=== PATIENT | female | born 1965 | race Caucasian/White ===

== ENCOUNTER 2018-02-03 11:26 | Emergency (ER) | payer OTHER ==
[~2018-02-03] VITALS: Ht 162.6 cm; Wt 99.8 kg
[~2018-02-03 11:26] MED LIST: AMOXICILLIN875 MG PO; BENADRYL ALLERG25 MG PO; CARAFATE 1 GM TA1 G1 PO; FIORICET 50-321 EACH PO; LISINOPRIL10 MG PO; MEDROLDOSEPACK PO; NORCO 10-325 T1 EACH PO; PHENERGAN 25 MG25 M1 PO; PREVACID 24HR15 MG PO; VISTARIL 25 MG25 M1 PO; ZOFRAN4 MG PO
[2018-02-03 12:26] LABS: ABSOLUTE BASOPHILS 0.1 thou/uL (0.0-0.2); ABSOLUTE EOSINOPHILS 0.2 thou/uL (0.0-0.7); ABSOLUTE LYMPHOCYTES 1.8 thou/uL (0.8-5.3); ABSOLUTE MONOCYTES 0.4 thou/uL (0.0-1.2); ABSOLUTE NEUTROPHILS 3.8 thou/uL (1.6-8.1); BASOPHILS 0.9 %; EOSINOPHILS 2.5 %; HEMATOCRIT 37.9 % (37.0-47.0); HEMOGLOBIN 12.6 gm/dL (12.0-15.0); LYMPHOCYTES 29.1 %; MCH 29.2 pg (26.0-34.0); MCHC 33.4 g/dL (28.0-37.0); MCV 87.5 fL (80.0-100.0); MONOCYTES 5.9 %; MPV 7.2 fl. (7.2-11.1); NUCLEATED RBCS 0 /100WBC; PLATELET COUNT* 180 thou/uL (150-400); POLYS 61.6 %; RBC 4.33 mil/uL (4.20-5.00); WBC 6.1 thou/uL (4.0-11.0)
[2018-02-03 12:51] LABS: ANION GAP 7 mmol/L (7-16); BUN 14 mg/dL (7-18); CALCIUM 8.4 mg/dL (8.5-10.1); CHLORIDE 106 mmol/L (98-107); CO2 28 mmol/L (21-32); CREATININE 0.8 mg/dL (0.6-1.3); GLUCOSE 99 mg/dL (70-99); POTASSIUM 3.6 mmol/L (3.5-5.1); SODIUM 141 mmol/L (136-145)
[2018-02-03 12:58] LABS: ALBUMIN 3.4 g/dL (3.4-5.0); ALKALINE PHOSPHATASE 76 U/L (46-116); SGOT 16 U/L (15-37); SGPT 17 U/L (30-65); TOTAL BILIRUBIN 0.2 mg/dL (<0.1-1.0); TOTAL PROTEIN 6.7 g/dL (6.4-8.2); TROPONIN-I LEVEL <0.06 ng/mL (<0.06)
[2018-02-03] MEDS ORDERED: ROBAXIN 750 MG750 M1 PO (13:37)
[2018-02-03 14:16] VITALS: BP 153/81
--- NOTE | 2018-02-03 17:05 | EKG ---
[place] [address] ELECTROCARDIOGRAM REPORT Name: RASTA JARVIS I Room: [facility]#: [id number] Admission: 02/03/18 Attend Phys: Discharge: 02/03/18 Date of : 61 Report #: [id number] THIS REPORT FOR: //name// [facility] ED Test Date: 2018-02-03 Test Time: 11:37:26 Pat Name: RASTA JARVIS Department: Room: Gender: F Pumper Gauger Apprentice: Vanessa SHI : 1965 Requested By: Jackie Cutler Order Number: [id number] MD: Ramon Knutson Measurements Intervals [place] Rate: 77 P: 67 MN: 136 QRS: 35 QRSD: 92 T: 23 QT: 399 QTc: 452 Interpretive Statements Sinus rhythm Compared to ECG 11/24/2012 16:55:22 No significant changes Electronically Signed On 02-03-2018 17:05:40 CDT by Ramon Knutson [email or web address] <ELECTRONICALLY SIGNED> By: Ramon Knutson MD, [facility] 02/03/18 1705 1137 113 Ramon Knutson MD, FACC /EPI
== END 2018-02-03 14:17 | disposition home or self-care (01) ==
LOC: M.ERS 11:26
PROVIDERS: Nurse Practitioner Family
DX: M54.2 Cervicalgia (principal); M25.511 Pain in right shoulder; G43.909 Migraine, unspecified, not intractable, without status migrainosus; Z87.01 Personal history of pneumonia (recurrent); Z90.49 Acquired absence of other specified parts of digestive tract; Z98.890 Other specified postprocedural states; Z88.5 Allergy status to narcotic agent

== ENCOUNTER 2018-07-24 22:32 | Emergency (ER) | payer OTHER ==
[~2018-07-24] VITALS: Ht 162.6 cm; Wt 102.1 kg
[~2018-07-24 22:32] MED LIST changes: +ROBAXIN 750 MG750 M1 PO
[2018-07-24 23:06] LABS: ABSOLUTE BASOPHILS 0.1 thou/uL (0.0-0.2); ABSOLUTE EOSINOPHILS 0.1 thou/uL (0.0-0.7); ABSOLUTE LYMPHOCYTES 2.6 thou/uL (0.8-5.3); ABSOLUTE MONOCYTES 0.4 thou/uL (0.0-1.2); BASOPHILS 1.1 %; EOSINOPHILS 1.9 %; HEMATOCRIT 37.6 % (37.0-47.0); HEMOGLOBIN 12.6 gm/dL (12.0-15.0); MCHC 33.6 g/dL (28.0-37.0); MCV 86.3 fL (80.0-100.0); MONOCYTES 7.1 %; MPV 7.7 fl. (7.2-11.1); NUCLEATED RBCS 0 /100WBC; PLATELET COUNT* 192 thou/uL (150-400); POLYS 47.9 %; RBC 4.35 mil/uL (4.20-5.00); RDW-CV 13.9 % (10.5-14.5); WBC 6.2 thou/uL (4.0-11.0)
[2018-07-24 23:24] LABS: ALBUMIN 3.4 g/dL (3.4-5.0); ALKALINE PHOSPHATASE 82 U/L (46-116); ANION GAP 11 mmol/L (7-16); BUN 17 mg/dL (7-18); CALCIUM 8.9 mg/dL (8.5-10.1); CHLORIDE 103 mmol/L (98-107); CO2 27 mmol/L (21-32); CREATININE 1.1 mg/dL (0.6-1.3); GLUCOSE 98 mg/dL (70-99); LIPASE 139 U/L (73-393); POTASSIUM 3.7 mmol/L (3.5-5.1); SGOT 17 U/L (15-37); SGPT 19 U/L (30-65); SODIUM 141 mmol/L (136-145); TOTAL BILIRUBIN 0.2 mg/dL (<0.1-1.0); TOTAL PROTEIN 7.1 g/dL (6.4-8.2); TROPONIN-I LEVEL <0.06 ng/mL (<0.06)
[2018-07-25] MEDS ORDERED: FLEXERIL PO (01:27)
[2018-07-25] MEDS ORDERED: ZOFRAN ODT4 MG DISSOLVE (01:33)
[2018-07-25 01:46] VITALS: BP 117/50
--- NOTE | 2018-07-25 13:11 | EKG ---
[place] [address] ELECTROCARDIOGRAM REPORT Name: RASTA JARVIS I Room: [facility]#: [id number] Admission: 07/24/18 Attend Phys: Discharge: 07/25/18 Date of : 61 Report #: [id number] THIS REPORT FOR: //name// [facility] ED Test Date: 2018-07-24 Test Time: 22:37:10 Pat Name: RASTA JARVIS Department: Room: Gender: F Supervisor Mapping: CHASE : 1965 Requested By: Shakir Grey Order Number: [id number] MD: Fredis Dan Measurements Intervals [place] Rate: 94 P: 60 MA: 133 QRS: -11 QRSD: 95 T: 4 QT: 366 QTc: 458 Interpretive Statements Sinus rhythm Compared to ECG 02/03/2018 11:37:26 No significant changes Electronically Signed On 07-25-2018 13:11:16 CDT by Fredis Dan [email or web address] <ELECTRONICALLY SIGNED> By: Fredis Dan MD, [facility] 07/25/18 1311 2236 36 Fredis Dan MD, FACC /EPI
--- NOTE | 2018-07-25 13:12 | EKG ---
[place] [address] ELECTROCARDIOGRAM REPORT Name: RASTA JARVIS I Room: [facility]#: [id number] Admission: 07/24/18 Attend Phys: Discharge: 07/25/18 Date of : 61 Report #: [id number] THIS REPORT FOR: //name// [facility] ED Test Date: 2018-07-25 Test Time: 01:21:34 Pat Name: RASTA JARVIS Department: Room: Gender: F Gym Manager: EMY : 1965 Requested By: Shakir Grey Order Number: [id number] MD: Fredis Dan Measurements Intervals [place] Rate: 78 P: 51 RI: 132 QRS: -14 QRSD: 94 T: -4 QT: 430 QTc: 490 Interpretive Statements Sinus rhythm Borderline T abnormalities, inferior leads Borderline prolonged QT interval Electronically Signed On 07-25-2018 13:12:00 CDT by Fredis Dan [email or web address] <ELECTRONICALLY SIGNED> By: Fredis Dan MD, [facility] 07/25/18 1312 0121 0121 Fredis Dan MD, FACC /EPI
== END 2018-07-25 01:49 | disposition home or self-care (01) ==
LOC: M.ERS 22:32
PROVIDERS: Emergency Medicine Emergency Medical Services
DX: R07.89 Other chest pain (principal); G43.909 Migraine, unspecified, not intractable, without status migrainosus; Z88.5 Allergy status to narcotic agent; Z88.6 Allergy status to analgesic agent; Z90.49 Acquired absence of other specified parts of digestive tract; Z98.890 Other specified postprocedural states; Z87.01 Personal history of pneumonia (recurrent)

== ENCOUNTER 2019-01-30 13:55 | Emergency (ER) | payer OTHER ==
[~2019-01-30] VITALS: Ht 162.6 cm; Wt 95.3 kg
[~2019-01-30 13:55] MED LIST changes: +FLEXERIL PO; +ZOFRAN ODT4 MG DISSOLVE
[2019-01-30 14:29] LABS: ABSOLUTE BASOPHILS 0.1 thou/uL (0.0-0.2); ABSOLUTE LYMPHOCYTES 1.4 thou/uL (0.8-5.3); ABSOLUTE MONOCYTES 0.3 thou/uL (0.0-1.2); EOSINOPHILS 0.2 %; HEMATOCRIT 41.3 % (37.0-47.0); HEMOGLOBIN 13.9 gm/dL (12.0-15.0); LYMPHOCYTES 17.4 %; MCH 29.4 pg (26.0-34.0); MCHC 33.6 g/dL (28.0-37.0); MCV 87.4 fL (80.0-100.0); MONOCYTES 4.4 %; MPV 7.7 fl. (7.2-11.1); NUCLEATED RBCS 0 /100WBC; PLATELET COUNT* 203 thou/uL (150-400); RBC 4.72 mil/uL (4.20-5.00); RDW-CV 13.9 % (10.5-14.5); WBC 7.8 thou/uL (4.0-11.0)
[2019-01-30 14:38] LABS: CALCIUM 9.4 mg/dL (8.5-10.1); CREATININE 0.9 mg/dL (0.6-1.3)
[2019-01-30 14:42] LABS: ALBUMIN 3.8 g/dL (3.4-5.0); TOTAL BILIRUBIN 0.5 mg/dL (<0.1-1.0); TOTAL PROTEIN 7.7 g/dL (6.4-8.2)
[2019-01-30] MEDS ORDERED: ONDANSETRON HCL4 M2 PO (15:47)
[2019-01-30 16:30] VITALS: BP 140/80
== END 2019-01-30 16:30 | disposition home or self-care (01) ==
LOC: M.ERS 13:55
PROVIDERS: Nurse Practitioner Family
DX: R11.2 Nausea with vomiting, unspecified (principal); G43.909 Migraine, unspecified, not intractable, without status migrainosus; Z98.890 Other specified postprocedural states; Z90.49 Acquired absence of other specified parts of digestive tract; Z88.6 Allergy status to analgesic agent

== ENCOUNTER 2019-03-07 05:22 | Emergency (ER) | payer OTHER ==
[~2019-03-07] VITALS: Ht 162.6 cm; Wt 102.1 kg
[~2019-03-07 05:22] MED LIST changes: +ONDANSETRON HCL4 M2 PO
[2019-03-07 06:22] LABS: ABSOLUTE BASOPHILS 0.1 thou/uL (0.0-0.2); ABSOLUTE LYMPHOCYTES 1.1 thou/uL (0.8-5.3); ABSOLUTE MONOCYTES 0.5 thou/uL (0.0-1.2); ABSOLUTE NEUTROPHILS 8.9 thou/uL (1.6-8.1); BASOPHILS 0.6 %; EOSINOPHILS 0.2 %; HEMATOCRIT 40.9 % (37.0-47.0); LYMPHOCYTES 10.2 %; MCH 29.4 pg (26.0-34.0); MCHC 34.2 g/dL (28.0-37.0); MONOCYTES 4.4 %; MPV 8.1 fl. (7.2-11.1); NUCLEATED RBCS 0 /100WBC; PLATELET COUNT* 201 thou/uL (150-400); POLYS 84.6 %; RBC 4.76 mil/uL (4.20-5.00); RDW-CV 13.8 % (10.5-14.5); WBC 10.5 thou/uL (4.0-11.0)
[2019-03-07 06:23] LABS: URINE BILIRUBIN NEGATIVE (Negative); URINE BLOOD TRACE (Negative); URINE CLARITY CLEAR; URINE COLOR YELLOW; URINE GLUCOSE-RANDOM NEGATIVE (Negative); URINE KETONES NEGATIVE (Negative); URINE LEUKOCYTES-REFLEX NEGATIVE (Negative); URINE NITRITE-REFLEX NEGATIVE (Negative); URINE PROTEIN NEGATIVE (Negative); URINE SPECIFIC GRAVITY 1.025 (1.005-1.030); URINE UROBILINOGEN 0.2 E.U./dl (0.2-1.0)
[2019-03-07 06:24] LABS: CALCIUM 9.1 mg/dL (8.5-10.1); CREATININE 0.9 mg/dL (0.6-1.3); POTASSIUM 3.9 mmol/L (3.5-5.1)
[2019-03-07 06:28] LABS: ALBUMIN 3.7 g/dL (3.4-5.0); TOTAL BILIRUBIN 0.4 mg/dL (<0.1-1.0); TOTAL PROTEIN 7.7 g/dL (6.4-8.2)
[2019-03-07 06:31] LABS: AMP/METHAMP Negative (Negative); BARBITURATES Negative (Negative); BENZODIAZEPINES Negative (Negative); COCAINE Negative (Negative); METHADONE Negative (Negative); OPIATES Negative (Negative); PCP Negative (Negative); THC Negative (Negative)
[2019-03-07] MEDS ORDERED: ZOFRAN ODT4 MG PO (07:29)
[2019-03-07] MEDS ORDERED: TRAMADOL 50 MG50 MG PO (07:29)
[2019-03-07 07:38] VITALS: BP 154/84
== END 2019-03-07 07:39 | disposition home or self-care (01) ==
LOC: M.ERS 05:22
PROVIDERS: Personal Emergency Response Attendant
DX: R10.84 Generalized abdominal pain (principal); R10.31 Right lower quadrant pain; G43.909 Migraine, unspecified, not intractable, without status migrainosus; Z87.01 Personal history of pneumonia (recurrent); Z90.49 Acquired absence of other specified parts of digestive tract; Z98.890 Other specified postprocedural states; Z88.5 Allergy status to narcotic agent; Z79.899 Other long term (current) drug therapy

== ENCOUNTER 2019-03-07 13:00 | Inpatient (IN) | payer OTHER ==
[~2019-03-07] VITALS: Ht 162.6 cm; Wt 102.1 kg
[~2019-03-07 13:00] MED LIST changes: +TRAMADOL 50 MG50 MG PO; +ZOFRAN ODT4 MG PO
[2019-03-07 13:08] VITALS: BP 146/80
[2019-03-07 14:19] LABS: ABSOLUTE BASOPHILS 0.1 thou/uL (0.0-0.2); ABSOLUTE LYMPHOCYTES 1.2 thou/uL (0.8-5.3); ABSOLUTE MONOCYTES 0.7 thou/uL (0.0-1.2); ABSOLUTE NEUTROPHILS 8.3 thou/uL (1.6-8.1); BASOPHILS 0.6 %; HEMATOCRIT 37.1 % (37.0-47.0); HEMOGLOBIN 12.6 gm/dL (12.0-15.0); LYMPHOCYTES 11.8 %; MCH 29.5 pg (26.0-34.0); MCHC 34.1 g/dL (28.0-37.0); MCV 86.5 fL (80.0-100.0); MONOCYTES 6.7 %; NUCLEATED RBCS 0 /100WBC; PLATELET COUNT* 177 thou/uL (150-400); POLYS 80.9 %; RBC 4.29 mil/uL (4.20-5.00); RDW-CV 13.8 % (10.5-14.5); WBC 10.3 thou/uL (4.0-11.0)
--- NOTE | 2019-03-07 18:16 | NUR ---
PT ARRIVED TO FLOOR FROM ER ABOUT 1630. PT STABLE. PAIN 5/10, DENIED PAIN MEDS AT THE TIME. ZOFRAN GIVEN FOR NAUSEA. IV PATENT, INFUSING. UP STAND BY. IN ROOM. SURGERY CONSULTED. TOLERATING CLEARS. WILL BE NPO AT MIDNIGHT. CALL LIGHT WITHIN REACH. WILL CONTINUE TO MONITOR.
[2019-03-07 19:35] VITALS: BP 129/74
[2019-03-08 04:40] LABS: ABSOLUTE LYMPHOCYTES 1.2 thou/uL (0.8-5.3); ABSOLUTE MONOCYTES 0.6 thou/uL (0.0-1.2); ABSOLUTE NEUTROPHILS 7.7 thou/uL (1.6-8.1); BASOPHILS 0.5 %; EOSINOPHILS 0.1 %; HEMATOCRIT 34.7 % (37.0-47.0); HEMOGLOBIN 11.9 gm/dL (12.0-15.0); LYMPHOCYTES 12.7 %; MCH 29.7 pg (26.0-34.0); MCHC 34.3 g/dL (28.0-37.0); MCV 86.7 fL (80.0-100.0); MPV 7.5 fl. (7.2-11.1); NUCLEATED RBCS 0 /100WBC; PLATELET COUNT* 164 thou/uL (150-400); POLYS 80.7 %; RDW-CV 13.9 % (10.5-14.5); WBC 9.5 thou/uL (4.0-11.0)
--- NOTE | 2019-03-08 04:55 | NUR ---
PATIENT HAS REMAINED ALERT AND ORIENTED X 4 THROUGHOUT THE SHIFT AND RESTING QUIETLY AT HOURLY ROUNDS. MEDICATED X 1 FOR PAIN AND NAUSEA OF THIS WRITING TO GOOD EFFECT. ORDERS FOR BOTH NPO AT MIDNIGHT AND A PELVIC + TRANSVAGINAL US WHICH REQUIRES WATER INTAKE PRIOR TO PROCEDURE FOR THIS AM. WILL SEEK CLARIFICATION REGARDING CONFLICTING ORDERS. UP SBA TO BR. NO STOOLS OVERNIGHT. VITAL SIGNS STABLE. CONTINUE TO MONITOR.
[2019-03-08 05:12] LABS: CALCIUM 8.4 mg/dL (8.5-10.1); CREATININE 0.8 mg/dL (0.6-1.3); POTASSIUM 3.4 mmol/L (3.5-5.1); TOTAL BILIRUBIN 0.5 mg/dL (<0.1-1.0); TOTAL PROTEIN 6.5 g/dL (6.4-8.2)
[2019-03-08 10:00] VITALS: BP 111/71
--- NOTE | 2019-03-08 18:29 | NUR ---
PATIENT ALERT AND ORIENTED THRU SHIFT. SEE MAR FOR PAIN CONTROL. IV FLUIDS INFUSING S/O DIFF. US DONE THIS AM. HRLY ROUNDS DONE. PRESENT IN THRU SHIFT. CURRENTLY RESTING IN BED, CALL LIGHT IN REACH. TV ON. DENIES OTHER NEEDS AT THIS TIME. ~TJRN
[2019-03-08 20:00] VITALS: BP 119/60
--- NOTE | 2019-03-09 04:17 | NUR ---
PATIENT HAS REMAINED ALERT AND ORIENTED X 4 THROUGHOUT THE SHIFT. SEVERE PAIN ABDOMEN RLQ AT SHIFT START WITH NAUSEA. ORDERED ORAL MEDS CAUSED NAUSEA WELL EARLIER IN THE DAY SO PATIENT REQUESTED THE IV MED THAT HAD PREVIOUSLY BEEN GIVEN. THIS MED FOUND TO HAVE BEEN DISCONTINUED. PHYSICIAN CONTACTED AND UPDATED ON STATUS/REQUEST. ABLE TO PROVIDE PATIENT IV PAIN AND NAUSEA MEDS REQUESTED. MIDNIGHT WITH REPORTED INCREASE IN PAIN AND LOCATION CHANGE FROM LLQ TO HIGHER AND TO SIDE. PAIN AND NAUSEA MEDS REPEATED TO GOOD EFFECT. CURRENTLY SITTING AT BEDSIDE WITH SPRITE. VITAL SIGNS STABLE. CONTINUE TO MONITOR.
[2019-03-09 04:21] LABS: CALCIUM 8.5 mg/dL (8.5-10.1); CREATININE 0.7 mg/dL (0.6-1.3); MAGNESIUM 1.8 mg/dL (1.8-2.4); POTASSIUM 3.4 mmol/L (3.5-5.1)
[2019-03-09 07:45] VITALS: BP 118/66
[2019-03-09 16:19] VITALS: BP 105/56
--- NOTE | 2019-03-09 18:23 | NUR ---
PATIENT ALERT AND ORIENTED THRU SHIFT. SEE MAR. IV SITE NOTED WNL, FLUIDS INFUSING W/O DIFF. POC REVIEWED W/ PATIENT/ FOR PROCEDURE TOMORROW AM. PATIENT INDEP IN RM W/ STEADY GAIT. CONSENT REVIEWED AND SIGNED. PATIENT CURRENTLY RESTING IN BED, FAMILY MEMBERS IN RM. CALL LIGHT IN REACH. RM DARKENED, TV ON. DENIES NEEDS AT THIS TIME. INSTRUCTED OF SURGERY PLAN FOR PROCEDURE SCHEDULED AT 0730. HRLY ROUNDS DONE. ~PETERRN
[2019-03-09 19:54] VITALS: BP 102/71
[2019-03-10] VITALS: BP 109/70
[2019-03-10 02:01] VITALS: BP 109/70
[2019-03-10 04:15] LABS: ABSOLUTE LYMPHOCYTES 1.1 thou/uL (0.8-5.3); ABSOLUTE MONOCYTES 0.8 thou/uL (0.0-1.2); ABSOLUTE NEUTROPHILS 9.6 thou/uL (1.6-8.1); BASOPHILS 0.4 %; HEMATOCRIT 32.8 % (37.0-47.0); LYMPHOCYTES 9.5 %; MCH 29.2 pg (26.0-34.0); MCHC 33.5 g/dL (28.0-37.0); MCV 87.3 fL (80.0-100.0); MONOCYTES 6.8 %; MPV 8.1 fl. (7.2-11.1); NUCLEATED RBCS 0 /100WBC; PLATELET COUNT* 149 thou/uL (150-400); POLYS 83.3 %; RBC 3.76 mil/uL (4.20-5.00); RDW-CV 13.6 % (10.5-14.5); WBC 11.5 thou/uL (4.0-11.0)
[2019-03-10 04:29] LABS: CALCIUM 8.7 mg/dL (8.5-10.1); CREATININE 0.9 mg/dL (0.6-1.3); POTASSIUM 3.2 mmol/L (3.5-5.1)
--- NOTE | 2019-03-10 07:28 | NUR ---
ASSUMED CARE OF PT 03/09/19 AT APPROX 1930, PT A&OX4, PT ON ROOM AIR, PT NPO SINCE MIDNIGHT FOR AM SURGERY, PAIN MED REQUESTED AND GIVEN ORDERED, PT POTASSIUM 3.2 IN AM - PT REFUSED ORDER FOR IV POTASSIUM CHLORIDE, REQUESTED PO BE GIVEN AFTER SURGERY, PHYSICIAN NOTIFIED, REPORT GIVEN AND CARE OF PATIENT TRANSFERED TO DAY SHIFT NURSE APPROX 0715.
--- NOTE | 2019-03-10 10:22 | OP ---
[address] [address] OPERATIVE REPORT Name: RASTA JARVIS I Room: [address] IN [facility]#: [id number] Admission: 03/09/19 Attend Phys: Pablito Venegas MD Discharge: Date of : 61 Report #: [id number] THIS REPORT FOR: //name// CC: Elizabeth Venegas DATE OF SERVICE: 03/10/2019 PREPROCEDURE DIAGNOSIS: Acute appendicitis. POSTPROCEDURE DIAGNOSES: Perforated appendicitis with purulent peritonitis, extensive intraabdominal adhesions and a recurrent umbilical hernia with findings of failed mesh. SURGEON: Elizabeth Waller DO. COSURGEON: Hamzah Rapp, PGY3. FIELD TRAFFIC INVESTIGATOR: None. PROCEDURE PERFORMED: Diagnostic laparoscopy, extensive lysis of adhesions for greater than 45 minutes and laparoscopic appendectomy. ANESTHESIA: General endotracheal and local. ESTIMATED BLOOD LOSS: 5. DRAINS: 15-Jordanian ISAI drain in the right lower quadrant. SPECIMENS: Appendix. COMPLICATIONS: None. CONDITION: Stable. DISPOSITION: PACU to the floor. HISTORY OF PRESENT ILLNESS: The patient is a very pleasant 53-year-old female who presented to the ER with a complaint of acute onset right lower quadrant abdominal pain. She had some mild associated nausea. Workup in the ED was essentially benign. She had a complete set of blood work, which was all within normal limits. UA showed only trace amount of blood. CT scan of the abdomen and pelvis with IV contrast was completely negative. She was admitted to the floor for observation. Her blood work on hospital day 1, continued to be normal, but she continued to complain of right lower quadrant abdominal pain. [address] [address] OPERATIVE REPORT Name: RASTA JARVIS Mani Room: [address] IN [facility].#: [id number] Admission: 03/09/19 Attend Phys: Pablito Venegas MD Discharge: Date of : 61 Report #: [id number] Pelvic ultrasound was completed with findings of a Bartholin gland cyst and some small physiologic ovarian cysts. Since her pain continued, we decided to proceed with a repeat CT scan of the abdomen and pelvis with PO and IV contrast, which then was positive for acute appendicitis. She was then consented for laparoscopic appendectomy, possible open. Risks discussed included bleeding, infection, pain, scar formation, injury to bowel, liver or other intraabdominal organs, hernia at the incision sites, need for an open procedure and risks of general anesthesia. The patient understood these risks and elected to proceed. PROCEDURE NOTE: The patient was brought to the operating room. She was laid supine on the operating room table. SCDs were placed on bilateral lower extremity. Zosyn was already being given in the perioperative period. General endotracheal anesthesia was induced by Anesthesia without difficulty. Abdomen was prepped and draped in standard sterile fashion. Timeout was performed to verify patient and procedure. A 10 mL of 0.5% Marcaine were injected in the supraumbilical area. Incision was made with 11 blade. Cautery was used for hemostasis. S retractors were used to visualize the fascia. Fascia was grasped and elevated between 2 Kochers. Fascia was incised using cautery. Peritoneum was bluntly entered using a Abi clamp. Finger was introduced into the abdomen to assure that there were no cem-incisional adhesions. Unfortunately, multiple adhesions were palpated at the umbilicus. I did have a clear zone to introduce the Cerda. A 2-0 Vicryl stitches were placed on the fascia. Laci trocar was introduced and secured with 0 Vicryl stitches. Abdomen was insufflated. Camera was introduced and a brief anterior abdominal exploration was undertaken with findings of dense adhesions at the umbilicus, which appeared to stretch into the pelvis. We were able to visualize the left lower quadrant; however, there was some thin purulent fluid in the pelvis. Two 5 mm trocars were then introduced, one in the left lower quadrant, one in the suprapubic area, both under direct visualization. We then began an extensive lysis of adhesions at the umbilicus. There was omentum and a loop of the transverse colon, which were densely adherent to what appeared to be a failed previous umbilical hernia repair with mesh. Mesh itself was not identified, but there were several areas where there appeared to be fibers of an old mesh at the site of the umbilicus. The hernia was obviously recurrent. An additional 5 mm trocar had to be introduced in the left mid quadrant to complete the lysis of adhesions. Care was taken during our dissection to avoid injury to the bowel. Once the entirety of the umbilicus was clear, we were then able to visualize the right lower quadrant. Cecum was adhered to the anterior abdominal wall. It was gently taken down using blunt dissection. Appendix was then easily identified. It was obviously acutely inflamed and there was a suggestion of perforation. The appendix was traced back to the base, which was healthy and pink. Base of the appendix was elevated and a [place] dissector was used to create a window in the mesentery at the base of the appendix. A 45 mm purple load stapler was introduced and the base of the appendix was clamped and stapled without difficulty. An additional 45 mm purple load stapler was used to take the mesentery. Specimen was then placed within an EndoCatch bag. Right lower quadrant and pelvis were then copiously [facility] [address] [place] [address] OPERATIVE REPORT Name: RASTA JARVIS I Room: [address] IN .R.#: [id number] Admission: 03/09/19 Attend Phys: Pablito Venegas MD Discharge: Date of : 61 Report #: [id number] irrigated until clear. Staple lines were inspected. They appeared to be intact. There was no bleeding or leakage noted from the staple lines. A 15-Jordanian ISAI drain was introduced through our suprapubic port was placed in the right lower quadrant. Remaining 5 mm trocars were removed under direct visualization. There was no bleeding noted from the peritoneum. Abdomen was then completely desufflated. Laci trocar was removed and EndoCatch bag was removed with the specimen intact. It was handed off for permanent pathology. Kochers were placed on the fascia of the supraumbilical port. Previously placed 0 Vicryl stitches were removed and a #0 Vicryl stitch was placed in [id number]-[id number] fashion with excellent approximation of the fascia. An additional 10 mL of 0.5% Marcaine were injected in the fascia. This wound was closed in a layered fashion using deep and superficial stitches of 3-0 Vicryl in inverted interrupted fashion. All skin wounds were closed with 4-0 Monocryl. Drain was sutured into place using 3-0 nylon. A total of 30 mL of 0.5% Marcaine were used to anesthetize the wounds. Wounds were then cleansed and covered with Mastisol, Steri-Strips, 4 x 4's, and Tegaderm. The patient was then allowed to awake from anesthesia, was extubated and transported to the recovery room with no further difficulties. Counts were correct x 2 at the conclusion of the case. <ELECTRONICALLY SIGNED> By: Elizabeth Waller DO 03/10/19 1022 0921 1015Craymond Waller DO /nt
--- NOTE | 2019-03-10 10:30 | NUR ---
ATTEMPTED TO MEET WITH PT, WAS IN SURGERY
[2019-03-10 12:00] VITALS: BP 119/65
--- NOTE | 2019-03-10 12:21 | EKG ---
[place] [address] ELECTROCARDIOGRAM REPORT Name: RASTA JARVIS I Room: [address] ADM IN M.R.#: [id number] Admission: 03/09/19 Attend Phys: Pablito Venegas MD Discharge: Date of : 61 Report #: [id number] THIS REPORT FOR: //name// [facility] Test Date: 2019-03-10 Test Time: 05:12:09 Pat Name: RASTA PRATERSILVIAKiara Department: Room: [address] Gender: F Printer'S Assistant: [facility] : 1965 Requested By: Pablito Venegas Order Number: [id number] MD: Tanner Meyer Measurements Intervals [place] Rate: 94 P: 57 WI: 127 QRS: 15 QRSD: 89 T: -2 QT: 352 QTc: 441 Interpretive Statements Sinus rhythm Low voltage, precordial leads Probable anteroseptal infarct, old Compared to ECG 07/25/2018 01:21:34 Low QRS voltage now present Myocardial infarct finding now present T-wave abnormality no longer present Electronically Signed On 03-10-2019 12:21:35 GLASS DRILLER by Tanner Meyer [email or web address] <ELECTRONICALLY SIGNED> By: Tanner Meyer MD, [facility] 03/10/19 1221 1 1 Tanner Meyer MD, [facility] /EPI
[2019-03-10 16:30] VITALS: BP 115/69
--- NOTE | 2019-03-10 17:23 | NUR ---
PT REMAINED ALERT AND ORIENTED. PT RESTING IN BED AND UP TO CHAIR,PAIN MEDS GIVEN ORDERED. PT VOIDED SMALL AMUNT OF URINE POST OP, DARK YELLOW, WILL MONITOR UO. FALL RISK PRECAUTIONS IN PLACE. HOURLY ROUNDING COMPLETED. WILL CONTINUE TO MONITOR.
[2019-03-10 20:08] VITALS: BP 108/65
[2019-03-10 23:53] VITALS: BP 108/62
[2019-03-11 04:46] VITALS: BP 110/68
--- NOTE | 2019-03-11 04:52 | NUR ---
ASSUMED CARE OF PT 03/10/19 AT APPROX 1930, PT A&OX4 THROUGHOUT SHIFT, PT ON 3L O2 NC WITH CAPNO, SURGICAL SITE DRESSINGS IN PLACE C/D/I, ISAI DRAIN IN PLACE, VSS, PAIN MEDS REQUESTED AND ADMINISTERED ORDERED, PT VOIDING - DARK YELLOW WITH SEDIMENT, WILL CONTINUE TO MONITOR.
[2019-03-11 05:19] LABS: ABSOLUTE LYMPHOCYTES 0.6 thou/uL (0.8-5.3); ABSOLUTE MONOCYTES 0.5 thou/uL (0.0-1.2); ABSOLUTE NEUTROPHILS 5.3 thou/uL (1.6-8.1); BASOPHILS 0.1 %; EOSINOPHILS 0.1 %; HEMATOCRIT 29.5 % (37.0-47.0); MCH 29.5 pg (26.0-34.0); MCHC 33.8 g/dL (28.0-37.0); MCV 87.2 fL (80.0-100.0); MONOCYTES 7.7 %; MPV 7.5 fl. (7.2-11.1); NUCLEATED RBCS 0 /100WBC; PLATELET COUNT* 148 thou/uL (150-400); POLYS 82.1 %; RBC 3.38 mil/uL (4.20-5.00); RDW-CV 13.5 % (10.5-14.5); WBC 6.4 thou/uL (4.0-11.0)
[2019-03-11 05:20] LABS: CALCIUM 8.6 mg/dL (8.5-10.1); POTASSIUM 4.1 mmol/L (3.5-5.1)
[2019-03-11 07:25] VITALS: BP 100/67
--- NOTE | 2019-03-11 16:53 | NUR ---
PT REMAINED ALERT AND ORIENTED. PT UP FOR MEALS AND WALKING IN ROOM. ISAI DRAINED THROUGHOUT SHIFT. PAIN MEDS GIVEN ORDERED. FALL RISK PRECAUTIONS IN PLACE. HOURLY ROUNDING COMPLETED. WILL CONTINUE TO MONITOR.
[2019-03-12] VITALS: BP 102/57
--- NOTE | 2019-03-12 03:08 | NUR ---
PATIENT HAS REMAINED ALERT AND ORIENTED X 4 THROUGHOUT THE SHIFT. RESTING WELL AT HOURLY ROUNDS. REPORTING ADEQUATE PAIN MANAGEMENT WITH OXY IR AND TORADOL. DRESSINGS INTACT TO ABDOMEN X 4 WITH DRAIN SITE RED DRAINAGE CONTAINED IN DRESSING AND UNCHANGED. ISAI DRAIN WITH SEROSANGUINEOUS DRAINAGE 40 ML OF THIS WRITING. UP SBA IN ROOM. ADEQUATE VOIDS. UNSURE IF SHE HAS PASSED GAS. NO NAUSEA. VITAL SIGNS STABLE AND AFEBRILE. CONTINUE TO MONITOR.
[2019-03-12 04:00] VITALS: BP 97/53
[2019-03-12 04:52] LABS: ABSOLUTE EOSINOPHILS 0.1 thou/uL (0.0-0.7); ABSOLUTE LYMPHOCYTES 0.8 thou/uL (0.8-5.3); ABSOLUTE MONOCYTES 0.4 thou/uL (0.0-1.2); ABSOLUTE NEUTROPHILS 5.1 thou/uL (1.6-8.1); BASOPHILS 0.2 %; EOSINOPHILS 0.9 %; HEMATOCRIT 28.5 % (37.0-47.0); HEMOGLOBIN 9.8 gm/dL (12.0-15.0); LYMPHOCYTES 11.8 %; MCH 29.7 pg (26.0-34.0); MCHC 34.5 g/dL (28.0-37.0); MCV 86.1 fL (80.0-100.0); MONOCYTES 6.9 %; MPV 7.4 fl. (7.2-11.1); NUCLEATED RBCS 0 /100WBC; PLATELET COUNT* 173 thou/uL (150-400); POLYS 80.2 %; RBC 3.31 mil/uL (4.20-5.00); RDW-CV 13.6 % (10.5-14.5); WBC 6.4 thou/uL (4.0-11.0)
[2019-03-12 05:40] LABS: CALCIUM 8.3 mg/dL (8.5-10.1); CREATININE 0.9 mg/dL (0.6-1.3); POTASSIUM 3.2 mmol/L (3.5-5.1)
--- NOTE | 2019-03-12 06:14 | NUR ---
PATIENT STATES RESTED WELL OVERNIGHT. HAS BEEN UP ALREADY TO WASH AT SINK. PRESENTLY IN CHAIR AT BEDSIDE. NO NEW EVENTS. LAST PAIN MEDICATION 604. NO OTHER CHANGES FROM PREVIOUS END OF SHIFT ENTRY.
[2019-03-12 07:35] VITALS: BP 148/80
[2019-03-12 16:00] VITALS: BP 123/73
--- NOTE | 2019-03-12 17:04 | NUR ---
pt remained alert and oriented. pt resting in bed. pain meds given as ordered. pt up[ ambulating in halls. fall risk precautions in place. hourly rounding completed. will continue to monitor.
[2019-03-12 19:35] VITALS: BP 98/69
[2019-03-13] VITALS: BP 118/79
--- NOTE | 2019-03-13 03:32 | NUR ---
PATIENT HAS REMAINED ALERT AND ORIENTED X 4 THROUGHOUT THE SHIFT AND RESTING QUIETLY ON HOURLY ROUNDS. UP SBA IN ROOM. MAKES AN EFFORT TO BE UP AND AROUND EVERY COUPLE OF HOURS. LAP DRESSINGS/ISAI CLEAN AND DRY TO ABDOMEN. INSTRUCTION REGARDING EMPTYING AND RECORDING ISAI OUTPUT INITIATED THIS PAST DAYSHIFT. MILD NAUSEA 0100. PATIENT REQUESTED AND RECEIVED ZOFRAN TO GOOD EFFECT. PATIENT REPORTING GOOD PAIN CONTROL WELL WITH ORAL MEDICATION. VITAL SIGNS STABLE/AFEBRILE. PASSING GAS. NO BM. CONTINUE TO MONITOR.
[2019-03-13 04:00] VITALS: BP 112/79
[2019-03-13 07:45] LABS: HEMATOCRIT 29.3 % (37.0-47.0); MCH 29.7 pg (26.0-34.0); MCHC 34.1 g/dL (28.0-37.0); MPV 7.3 fl. (7.2-11.1); RBC 3.37 mil/uL (4.20-5.00); RDW-CV 13.8 % (10.5-14.5); WBC 5.9 thou/uL (4.0-11.0)
[2019-03-13 07:56] LABS: CALCIUM 8.7 mg/dL (8.5-10.1); CREATININE 0.9 mg/dL (0.6-1.3); MAGNESIUM 2.1 mg/dL (1.8-2.4); PHOSPHORUS* 3.1 mg/dL (2.5-4.9); POTASSIUM 3.3 mmol/L (3.5-5.1)
[2019-03-13 08:55] VITALS: BP 97/56
[2019-03-13 12:41] VITALS: BP 112/79
[2019-03-13 12:51] VITALS: BP 112/79
[2019-03-13] MEDS ORDERED: OXYCODONE HCL 55 MG PO (13:15)
[2019-03-13] MEDS ORDERED: AUGMENTIN 875-1 EACH PO (13:31)
--- NOTE | 2019-03-13 14:00 | NUR ---
PATIENT DISCHARGED HOME W/ PRESENT. PATIENT ALERT AND ORIENTED, PLEASANT AND COOPERATIVE W/ ASSESS AND CARES. AMB IN HALLS W/ , NOTED STEADY GAIT. IV CATH SITE DISCONTI. X3 ABD INC SITES, STERI STRIPS NOTED WNL. ISAI DRAIN DISCONTI THIS AM PER SURGERY. BORDER DRSG APPLIED OVER SITE, NOTED SCANT RED DRNG TO DRSG. DISCHARGE INSTRUCTIONS REVIEWED W/ PATIENT, PRESENT, PATIENT STATES VERBALLY OF UNDERSTANDING. COPY OF INSTRUCTIONS AND ORIG SCRIPTS GIVEN TO PATIENT. BELONGINGS GATHERED PER PATIENT/. BELONGINGS LEFT RM W/ . PATIENT DRESSED INDEP. PATIENT ESCORTED TO AWAITING VEHICLE PER WC W/ NURSING PRESENT. PATIENT DENIES OTHER NURSING NEEDS AT THIS TIME. ~TJRN
--- NOTE | 2019-03-14 18:06 | PATH ---
[address] [address] PATHOLOGY RPT PROCEDURE Name: RASTA JOHNSON I Room: [address] IN [facility]#: [id number] Admission: 03/09/19 Date of : 61 Discharge: 03/13/19 Report #: [id number] Path Case #: [id number] [facility] Accession Number: [id number] . 01 Material submitted: . appendix - APPENDIX . 01 Clinical history: . Appendicitis Perforated appendix, intra-abdominal adhesions . 02 Diagnosis: Appendix: - Acute gangrenous appendicitis, periappendicitis, and serositis with evidence of perforation. (MARY JANE:sera; 03/14/2019) MBR 03/14/2019 1346 Local . 02 Electronically signed: . Paul Herrera MD, Pathologist NPI- [id number] . 01 Gross description: . The specimen is received in formalin, labeled "Rasta Johnson, appendix" and consists of a possibly perforated appendix measuring 7.3 in length and ranging from 0.5-1.2 in diameter with mesoappendix measuring 2.0 thick. The serosa is rodríguez-brown with extensive thick fibrous adhesions/exudate. The area of possible perforation is inked orange. The margin is closed with a line of simran and inked black. Sectioning reveals a dilated lumen containing brown fecal material. Car Park Attendant sections are submitted in A1-A3. (SDY; 03/13/2019) SYU/SYU 03/13/2019 1018 Local . 02 Pathologist provided ICD-10: K35.80 . 02 CPT . 807811 Specimen Comment: A courtesy copy of this report has been sent to [phone], [phone] Specimen Comment: [id number], Specimen Comment: Report sent to , and Performed at: [address] [id number] MD Tien Hackett MD Phone: [phone] Performed at: [address] [place] [address] PATHOLOGY RPT PROCEDURE Name: RASTA JOHNSON I Room: [address] IN [facility].#: [id number] Admission: 03/09/19 Date of : 61 Discharge: 03/13/19 Report #: [id number] Path Case #: [id number] [facility] [address] CRISTIAN Mckeon [id number] MD Paul Herrera MD Phone: [phone]
== END 2019-03-13 14:00 | disposition home or self-care (01) | DRG 336 ==
LOC: M.ERS 13:00 → M.TBA-ER 13:21 → M.ORTHSURG 13:21 → M.TBA-ER 13:21 → M.ORTHSURG 15:56
PROVIDERS: Emergency Medicine; Surgery; ADMIT Family Medicine
PROC: 0DNU4ZZ Release Omentum, Percutaneous Endoscopic Approach (ICD-10-PCS; principal; 2019-03-10)
PROC: 0DTJ4ZZ Resection of Appendix, Percutaneous Endoscopic Approach (ICD-10-PCS; principal; 2019-03-10)
DX: K35.32 Acute appendicitis with perforation, localized peritonitis, and gangrene, without abscess (principal); D62 Acute posthemorrhagic anemia; K42.9 Umbilical hernia without obstruction or gangrene; K66.0 Peritoneal adhesions (postprocedural) (postinfection); G43.909 Migraine, unspecified, not intractable, without status migrainosus; I10 Essential (primary) hypertension; N28.1 Cyst of kidney, acquired; E87.6 Hypokalemia; E66.01 Morbid (severe) obesity due to excess calories; Z68.38 Body mass index [BMI] 38.0-38.9, adult; Z87.01 Personal history of pneumonia (recurrent); Z90.49 Acquired absence of other specified parts of digestive tract; Z88.5 Allergy status to narcotic agent; Z88.8 Allergy status to other drugs, medicaments and biological substances; Z79.899 Other long term (current) drug therapy

== ENCOUNTER 2021-03-13 17:06 | Emergency (ER) | payer OTHER ==
[~2021-03-13] VITALS: Ht 162.6 cm; Wt 90.7 kg
[~2021-03-13 17:06] MED LIST changes: +AUGMENTIN 875-1 EACH PO; +OXYCODONE HCL 55 MG PO
[2021-03-13 17:27] VITALS: BP 160/82
== END 2021-03-13 17:27 | disposition left against medical advice (07) ==
LOC: M.ERS 17:06
DX: R51.9 Headache, unspecified (principal); Z53.21 Procedure and treatment not carried out due to patient leaving prior to being seen by health care provider